=== PATIENT | female | born 1990 | race Hispanic/Latino ===

== ENCOUNTER 2019-03-12 14:40 | Observation (INO) | payer BC | END 2019-03-12 16:13 | disposition home or self-care (01) | LOC: LDH 14:40 | PROVIDERS: ADMIT Obstetrics & Gynecology; ATTEND Obstetrics & Gynecology | DX: Z34.93 Encounter for supervision of normal pregnancy, unspecified, third trimester (principal); Z3A.34 34 weeks gestation of pregnancy | CPT/HCPCS: 59025; 76819; G0378 ×2 ==

== ENCOUNTER 2019-03-19 16:23 | Inpatient (IN) | payer BC | END 2019-03-22 15:15 | disposition home or self-care (01) | LOC: LDH 16:23 → WSH 03-20 18:33 | PROC: 10D00Z1 Extraction of Products of Conception, Low, Open Approach (ICD-10-PCS; principal; 2019-03-19 17:18) | DX: O14.04 Mild to moderate pre-eclampsia, complicating childbirth (principal); Z37.0 Single live birth ==